=== PATIENT | male | born 1990 | race Two or more races ===

== ENCOUNTER 2017-04-25 17:07 | Emergency (ER) | payer SELFPAY ==
[~2017-04-25] VITALS: Ht 165.1 cm; Wt 68.0 kg
[2017-04-25 17:09] VITALS: BP 120/76
--- NOTE | 2017-04-25 21:32 | Emergency Room Report ---
History of Present Illness General Chief Complaint: Alcohol Intoxication Source: Patient, EMS (ERIK ABDI) Present Illness HPI The patient is a 25 old male brought in by ambulance for supposed to alcohol intoxication. He is unable to answer my questions at this time (ERIK ABDI) Allergies: Coded Allergies: UNABLE TO ASSESS (Unverified , 04/25/17) Patient History Past Medical History: see triage record Pertinent Family History: none Social History: Reports: alcohol use Reviewed Nursing Documentation: PMH: Agreed, PSxH: Agreed (ERIK ABDI) Nursing Documentation-PMH Past Medical History Deferred: Pt Cognitively Impaired (ERIK ABDI) Review of Systems All Other Systems: limited (ERIK ABDI) Physical Exam Vital Signs Date Time Temp Pulse Resp B/P (MAP) Pulse Ox O2 Delivery O2 Flow Rate FiO2 04/25/17 17:01 84 20 120/76 100 Room Air Sp02 EP Interpretation: reviewed, normal General Appearance: no apparent distress, GCS 15, non-toxic, lethargic Head: normocephalic, atraumatic Eyes: bilateral eye normal inspection, bilateral eye PERRL ENT: hearing grossly normal, normal pharynx, no angioedema Neck: full range of motion, supple/symm/no masses Respiratory: chest non-tender, lungs clear, normal breath sounds, speaking full sentences Cardiovascular #1: regular rate, rhythm, no edema Gastrointestinal: normal bowel sounds, non tender, soft, non-distended, no guarding, no rebound Musculoskeletal: back normal, gait/station normal, normal range of motion, non- tender Neurologic: responsive, motor strength/tone normal, sensory intact Psychiatric: judgement/insight normal, memory normal, mood/affect normal, no suicidal/homicidal ideation Skin: normal color, no rash, warm/dry, well hydrated (ERIK ABDI) Medical Decision Making PA Attestation Dr. Rich is my supervising physician. Patient management was discussed with my supervising physician (ERIK ABDI) Diagnostic Impression: Primary Impression: Acute alcoholic intoxication Qualified Codes: F10.929 - Alcohol use, unspecified with intoxication, unspecified ER Course The patient is a 25 old male brought in by ambulance for supposed to alcohol intoxication DDx considered but not limited to: acute alcohol intoxication, hepatic encephalopathy, drug overdose, hypoglycemia, psychosis Physical exam: Vitals are within normal limits. No apparent distress. Patient is lethargic. Head is normocephalic atraumatic. Pupils are equally round and reactive to light The patient awakens by touch or name. Lungs are clear to auscultation bilaterally. No abnormal tenderness. Abdomen is soft. Otherwise exam is unremarkable The patient is given time to rest in the emergency department. Upon reevaluation, patient admits to drinking 4 beers. The patient is able to ambulate well and is asking to leave at this time. The patient is alert and oriented. The patient be discharged home and given ER precautions. Patient was given advice on alcohol addiction (ERIK ABDI) Last Vital Signs Date Time Temp Pulse Resp B/P (MAP) Pulse Ox O2 Delivery O2 Flow Rate FiO2 04/25/17 17:09 20 120/76 100 Room Air 04/25/17 17:01 84 Status: improved (ERIK ABDI) Last Vital Signs Date Time Temp Pulse Resp B/P (MAP) Pulse Ox O2 Delivery O2 Flow Rate FiO2 04/25/17 21:50 98.6 102 14 100/63 100 Room Air Status: improved (Humble Rich M.D.) Disposition: HOME, SELF-CARE Condition: Improved Referrals: NOT CHOSEN ANTWON/,REFERRING (PCP) ERIK ABDI Apr 25, 2017 21:32 Humble Rich M.D. Apr 26, 2017 07:47
[2017-04-25 21:45] VITALS: BP 100/63
[2017-04-25 21:50] VITALS: BP 100/63
== END 2017-04-25 21:50 | disposition home or self-care (01) ==
LOC: EDBD 17:07 → EMR 17:30
DX: F10.129 Alcohol abuse with intoxication, unspecified (principal)
CPT/HCPCS: 99283